=== PATIENT | male | born 1990 | race Caucasian/White ===

== ENCOUNTER 2020-07-31 15:37 | Emergency (ER) | payer OTHER, SELFPAY ==
[2020-07-31 15:40] VITALS: BP 134/90; PULSE 93; RESP 20; TEMP 36.2; O2SAT 99
--- NOTE | 2020-07-31 18:40 | PC.NURSE ---
not in WR at 1733 or 1800
== END 2020-07-31 17:33 | disposition left against medical advice (07) ==
LOC: ANHED 18:50
DX: R68.83 Chills (without fever) (principal)
CPT/HCPCS: 99199

== ENCOUNTER 2022-07-05 10:56 | Emergency (ER) | payer OTHER, SELFPAY ==
[2022-07-05 10:56] VITALS: BP 115/98; PULSE 86; RESP 16; TEMP 35.9; O2SAT 97
--- NOTE | 2022-07-05 10:59 | ED.WOUNDLAC ---
HPI - Wound/Laceration General Chief Complaint: Wound/Laceration Stated Complaint: right had laceration Time Seen by Provider: 07/05/22 10:59 Source: patient and RN notes reviewed Mode of arrival: ambulatory Limitations: no limitations History of Present Illness HPI narrative: patient states that he struck a porcelain counter in anger at home. It then broke and cut his right palm. Palpation makes it painful. Rest makes it better. Onset (ago): minute(s) (10) Extremity Location: Right: hand Place: home Patient tetanus UTD: Yes ( In the last 5 years) Context: accidental Associated symptoms: none Treatments prior to arrival: bandage Related Data Home Medications Medication Instructions Recorded Confirmed No Home Medications 07/05/22 07/05/22 Allergies Allergy/AdvReac Type Severity Reaction Status Date / Time No Known Allergies Allergy Verified 07/05/22 11:04 Review of Systems Review of Systems: All systems reviewed & are unremarkable except as noted in HPI and below PMFSH Past Medical History Medical History (Updated 07/05/22 @ 11:15 by Zana Chung MD) No active medical problems Surgical History Surgical History (Updated 07/05/22 @ 11:04 by Zana Chung MD) No pertinent past surgical history Exam Const: General: healthy appearing, no acute distress and alert Nutritional Appearance: well nourished Orientation/consciousness: patient oriented x3 Limitations: no limitations HENMT: Head: normal to inspection Ears: external ears normal Face/Nose/Sinus: Normal external nose present Face and sinus: normal facial exam Mouth: Yes moist mucous membranes Eyes: Conjunctivae: conjunctivae normal Pupils: Equal, round and reactive pupils present EOM: EOMs intact bilaterally Neck: Neck: normal visual inspection Resp: Effort & Inspection: normal respiratory effort Auscultation: clear to auscultation bilaterally Cardio: Rate: regular rate Rhythm: regular rhythm GI: GI Palp: Yes Soft to palpation and No Tenderness to palpation present (GI) Auscultation: normal bowel sounds Back/Spine/Pelvis: Cervical Spine: cervical ROM normal Thoracic/Lumbar Spine: thoraco-lumbar ROM normal Skin: General skin exam: normal color Rashes: no rashes Wounds: wounds noted laceration right palmar hand size (5 cm) Neuro: General: patient oriented x3, moves all extremities, no focal motor deficits and CN's II-XI intact bilaterally Speech: normal speech Gait exam (Neuro): Normal gait present Extrem: General: normal to inspection and no clubbing, cyanosis or edema Psych: Mental Status: mental status grossly normal Affect: normal affect Attitude: cooperative Course Vital Signs Vital signs: Vital Signs Temperature 35.9 C L 07/05/22 10:56 Pulse Rate 86 07/05/22 10:56 Respiratory Rate 16 07/05/22 10:56 Blood Pressure 115/98 H 07/05/22 10:56 Pulse Oximetry 97 07/05/22 10:56 Oxygen Delivery Room Air 07/05/22 10:56 Temperature 35.9 C L 07/05/22 10:56 Pulse Rate 86 07/05/22 10:56 Respiratory Rate 16 07/05/22 10:56 Blood Pressure 115/98 H 07/05/22 10:56 Pulse Oximetry 97 07/05/22 10:56 Oxygen Delivery Room Air 07/05/22 10:56 Procedures Laceration Laceration 1: Date: 07/05/22 Site: hand Side (If applicable): right Size (cm): 5 Description: linear Depth: simple, single layer Local Anesthetic: lidocaine 1% and with epi Amount of anesthesia used (mL): 10 Pre-repair: wound explored and irrigated ====== Skin Level ====== Skin layer closed with: nylon Size (cm): 4-0 Number of sutures: 12 Technique: running ====== Subcutaneous Layer ====== ====== Muscle Layer ====== ====== Tendon Layer ====== Dressing: Nonstick Telfa and Jill Discharge Plan Discharge Clinical Impression: Laceration Patient Disposition: Home, Self-Care Condition: Improved
== END 2022-07-05 11:40 | disposition home or self-care (01) ==
LOC: CHSED 11:34
PROVIDERS: Emergency Provider Emergency Medicine; PCP Family Medicine
DX: S61.411A Laceration without foreign body of right hand, initial encounter (principal); W26.8XXA Contact with other sharp object(s), not elsewhere classified, initial encounter
CPT/HCPCS: 12002; 99282

== ENCOUNTER 2022-07-14 03:22 | Emergency (ER) | payer OTHER, SELFPAY ==
[2022-07-14 03:28] VITALS: BP 170/80; PULSE 90; RESP 20; TEMP 36.8; O2SAT 99
--- NOTE | 2022-07-14 03:36 | ED.GENADULT ---
HPI - General Adult General Chief complaint: Extremity Problem,Nontraumatic Stated complaint: possible infection Time Seen by Provider: 07/14/22 03:30 History of Present Illness HPI narrative: the patient is a 31-year-old male who sustained a right hand laceration on 07/05/2022 and underwent repair with 12 running sutures at this institution. He was discharged without antibiotics. He now presents to the emergency room with onset of cellulitis and erythema with tenderness of the right hand since 9:00 p.m. 07/13/2022. Prior to that, there is no erythema. The sutures are still in place. He has an appointment with his primary care provider in 2 days time, 07/16/2022. No fevers. No drainage from the wound. No motor or sensory deficits in the right hand. No other complaints. Related Data Allergies Allergy/AdvReac Type Severity Reaction Status Date / Time No Known Allergies Allergy Verified 07/05/22 11:04 Review of Systems Review of Systems: All systems reviewed & are unremarkable except as noted in HPI and below Constitutional: Constitutional: Reports as per HPI, Reports no additional constitutional complaints, Denies chills, Denies excessive sweating, Denies fatigue, Denies fever(s), Denies headache(s) and Denies weakness Eyes: Eyes: Reports as per HPI, Reports no additional eye complaints, Denies change in vision and Denies photophobia ENT: Reports system reviewed and no additional complaints, except as documented, Reports as per HPI, Denies dysphagia, Denies vertigo, Denies dizziness, Denies headache(s), Denies lip swelling, Denies nasal congestion, Denies sore throat, Denies throat swelling and Denies tongue swelling Cardiovascular: Cardiovascular: Reports as per HPI, Reports no additional cardiovascular complaints, Denies chest pain, Denies syncope, Denies rapid heart rate and Denies dyspnea Respiratory: Respiratory: Reports as per HPI, Reports no additional respiratory complaints, Denies chest congestion, Denies cough, Denies dyspnea and Denies wheezing Gastrointestinal: Gastrointestinal: Reports as per HPI, Reports no additional gastrointestinal complaints, Denies abdominal pain, Denies constipation, Denies dysphagia, Denies diarrhea, Denies nausea and Denies vomiting Genitourinary: Genitourinary: Reports as per HPI, Denies hematuria, Denies oliguria, Denies dysuria, Denies urinary frequency, Denies urinary incontinence and Denies urinary urgency Musculoskeletal: Musculoskeletal: Reports no additional musculoskeletal complaints, Denies back pain, Denies myalgias, Denies arthralgias, Denies joint swelling and Denies numbness Integumentary/Breasts: Skin/Breast: Reports system reviewed and no additional complaints, except as docu, Denies pruritus, Reports erythema ( Right hand laceration repair site), Denies rash and Denies skin ulcer Neurologic: Reports system reviewed and no additional complaints, except as documented, Reports as per HPI, Denies confusion, Denies vertigo, Denies dizziness, Denies syncope, Denies headache(s), Denies focal weakness, Denies numbness and Denies weakness Psychiatric: Psychiatric: Reports as per HPI, Denies anxiety, Denies confusion, Denies depression, Denies homicidal ideation and Denies suicidal ideation Endocrine: Endocrine: Reports no additional endocrine complaints, Denies excessive sweating, Denies fatigue, Denies polydipsia and Denies polyuria Hematologic/Lymphatic: Hematologic/Lymphatic: Reports no additional hematologic/lymphatic complaints, Denies easy bleeding and Denies easy bruising Allergic/Immunologic: Allergic/Immunologic: Reports no additional allergic/immunologic complaints, Denies lip swelling, Denies throat swelling, Denies tongue swelling and Denies wheezing PMFSH Past Medical History Medical History No active medical problems Surgical History Surgical History No pertinent past
[2022-07-14] MEDS: ceFAZolin SODIUM 1 GM VIAL IM ×2 (03:53)
[2022-07-14] MEDS: NEOMYCIN/POLYMYXIN/BACITRACIN OINTMENT 15 GM TUBE 1 APPLIC TOPICAL (03:55)
--- NOTE | 2022-07-14 03:56 | PC.NURSE ---
Wrapped hand with triple antibiotic ointment per Dr. Garcia instructions
[2022-07-14 03:57] VITALS: BP 140/90; PULSE 90; RESP 20; TEMP 36.6; O2SAT 98
== END 2022-07-14 04:07 | disposition home or self-care (01) ==
PROVIDERS: Emergency Provider Emergency Medicine; PCP Family Medicine
DX: L03.113 Cellulitis of right upper limb (principal)
CPT/HCPCS: 96372; 99283; J0690

== ENCOUNTER 2024-01-08 17:23 | Emergency (ER) | payer OTHER, SELFPAY ==
[2024-01-08 17:30] VITALS: BP 122/83; PULSE 95; TEMP 35.7; O2SAT 97
[2024-01-08 18:15] LABS: Strep Group A RT-PCR NOT DETECTED (Negative)
[2024-01-08 18:25] LABS: SARS-CoV-2 RNA PCR Negative (Negative)
--- NOTE | 2024-01-08 18:25 | ED.GENADULT ---
HPI - General Adult General Chief complaint: Upper Respiratory Infection Stated complaint: sore throat Source: patient Mode of arrival: ambulatory Limitations: no limitations History of Present Illness HPI narrative: 33-year-old white male complains of a cough productive of whitish sputum since last night around midnight without any nausea vomiting problems eating or drinking rash or itching bleeding or bruising chest pain shortness of breath dizziness or lightheadedness swelling lumps or bumps or any other complaints. Works has a door-deliver person of food. No history of heart lung disease. Denies any Other complaints. Related Data Allergies Allergy/AdvReac Type Severity Reaction Status Date / Time No Known Allergies Allergy Verified 07/05/22 11:04 Review of Systems Review of Systems: All systems reviewed & are unremarkable except as noted in HPI and below PMFSH Past Medical History Medical History No active medical problems Surgical History Surgical History No pertinent past surgical history Exam Narrative: White male patient with no apparent distress.? Head normocephalic, atraumatic.? Eyes conjunctiva pink sclera nonicteric.? Extraocular movements are intact.? Ears externally normal.? Oropharynx is clear with moist mucous membranes without exudates.? Neck is supple nontender no lymphadenopathy.? Back is nontender.? Lungs are clear.? Heart is regular rate and rhythm without murmurs gallops or rubs.? Chest wall nontender. Abdomen is soft and nontender no hepatosplenomegaly or masses no CVA tenderness no abdominal bruits.? Extremities no cyanosis clubbing or edema.? Skin is warm and dry without rashes or lesions.? Neurological patient is alert and oriented x4.? Motor and sensory grossly intact.? Gait is normal Course Vital Signs Vital signs: Vital Signs Oxygen Delivery Room Air 01/08/24 17:25 Temperature 36.6 C 01/08/24 18:46 Pulse Rate 78 01/08/24 18:46 Blood Pressure 116/77 01/08/24 18:46 Pulse Oximetry 92 01/08/24 18:46 Oxygen Delivery Room Air 01/08/24 18:46 Medical Decision Making [facility] Narrative Medical decision making narrative: ? Patient placed in room: Three with his mother ? History and physical was performed. flu COVID RSV all negative Independent Historian: mother External Source Review: Differential Dx includes but not limited to: COVID flu RSV strep bronchitis mode Medications were Reviewed: Medications given: home meds reviewed he is not taking anything Independently Interpreted by me: Shared decision Making: evaluation was discussed all questions were asked and answered patient agreed with plan. Social Situation Impacting Patients Care: Discussed with Dr. SWAIN DIAGNOSIS: acute bronchitis DISPOSITION: Discharged home CONDITION AT DISCHARGE: stable Vital Signs Vital Signs: Vital Signs Oxygen Delivery Room Air 01/08/24 17:25 Temperature 36.6 C 01/08/24 18:46 Pulse Rate 78 01/08/24 18:46 Blood Pressure 116/77 01/08/24 18:46 Pulse Oximetry 92 01/08/24 18:46 Oxygen Delivery Room Air 01/08/24 18:46 Lab Data Labs: Lab Results 01/08/24 01/08/24 Range/Units 17:33 17:34 Influenza A (RT-PCR) Negative (Negative) Influenza B (RT-PCR) Negative (Negative) RSV (RT-PCR) Negative (Negative) SARS-CoV-2 RNA (RT-PCR) Negative (Negative) Group A Strep (PCR) Not detected (Negative) Discharge Plan Discharge Clinical Impression: Acute bronchitis Qualifiers: Bronchitis organism: unspecified organism Qualified Code(s): J20.9 - Acute bronchitis, unspecified Patient Disposition: Home, Self-Care Condition: Stable Instructions: Acute Bronchitis (ED) Additional Instructions: Robitussin DM for cough [id number] as needed. Tylenol
[2024-01-08 18:46] VITALS: BP 116/77; PULSE 78; TEMP 36.6; O2SAT 92
--- NOTE | 2024-01-08 18:58 | PC.NURSE ---
assumed care. report received from sanjuanita zarate.
[2024-01-08 19:00] LABS: Influenza A QL RT-PCR Negative (Negative); Influenza B QL RT-PCR Negative (Negative); RSV RNA, RT-PCR Negative (Negative)
--- NOTE | 2024-01-08 19:02 | PC.NURSE ---
REPORT TO CARIDAD JOLLY
[2024-01-08 20:05] VITALS: BP 125/70; PULSE 85; RESP 16; O2SAT 96
== END 2024-01-08 20:05 | disposition home or self-care (01) ==
PROVIDERS: Emergency Provider Emergency Medicine; PCP Family Medicine
DX: J20.9 Acute bronchitis, unspecified (principal); Z20.822 Contact with and (suspected) exposure to COVID-19
CPT/HCPCS: 87637; 87651; 99283

== ENCOUNTER 2024-02-28 08:43 | Outpatient (CLI) | payer OTHER, SELFPAY ==
--- NOTE | ~2024-02-28 | US_ITS ---
RIGHT UPPER QUADRANT ABDOMINAL ULTRASOUND (Doppler ultrasound interrogation techniques used as needed for this exam.) Ordering provider: Babatunde Curtis, History: . Elevated alkaline phosphatase level . Comparison: None. FINDINGS: PANCREAS: Partially seen. PORTAL VEIN: Hepatopedal flow demonstrated. LIVER: Normal size and increased echotexture suggestive of fat infiltration. No focal hepatic lesions or perihepatic fluid collections are identified. BILIARY DUCTS: No intra or extrahepatic biliary dilation. Common bile duct measures 5 mm in diameter which is normal for patient's age. GALLBLADDER: Polyps is noted. No stones, sludge, gallbladder wall thickening or pericholecystic fluid . Negative sonographic Mixon's sign. FREE FLUID: None visualized within the upper abdomen. IMPRESSION: Polyp in the gallbladder. Fat infiltration of the liver. Otherwise, normal right upper quadrant ultra sound. Reviewed, dictated and finalized at location A. MOGRAPH OPERATOR IMPRESSION: Polyp in the gallbladder. Fat infiltration of the liver. Otherwise, normal righ t upper quadrant ultrasound.
== END 2024-02-28 08:44 | disposition home or self-care (01) ==
LOC: CHSIMG 08:45
PROVIDERS: PCP Family Medicine; Visit Provider Family Medicine
DX: R74.8 Abnormal levels of other serum enzymes (principal); K82.4 Cholesterolosis of gallbladder; K76.0 Fatty (change of) liver, not elsewhere classified
CPT/HCPCS: 76705

== ENCOUNTER 2024-08-14 12:40 | Outpatient (CLI) | payer OTHER, SELFPAY ==
[2024-08-14 13:05] LABS: Hematocrit 41.4 % (40.0-54.0); Hemoglobin 14.1 g/dL (14.0-18.0); Mean Corpuscular HGB Conc 34.1 g/dL (32-36); Mean Corpuscular Hemoglobin 28.6 pg (27.0-31.0); Mean Platelet Volume 9.3 fl (8.7-11.0); Platelet Count Result 262 K/mm3 (150-420); Red Blood Count 4.93 M/mm3 (4.70-6.10); Red Cell Distribution Width 13.6 % (11.6-14.4); White Blood Count 6.9 K/mm3 (4.8-10.8)
[2024-08-14 13:34] LABS: Add Urine Microscopic? NO; Appearance Urine Clear (Clear); Bilirubin Urine Negative (Negative); Blood Urine Negative (Negative); Color Urine Yellow (Yellow); Glucose Urine UA Trace (Negative); Ketones Urine Negative (Negative); Leukocyte Esterase Ur Negative (Negative); Nitrate Urine Negative (Negative); Protein Urine Negative (Negative); Specific Grav Ur >= 1.030 (1.010-1.020); Urobilinogen Urine 0.2 mg/dL (0.2-1.0); pH Urine 5.5 (5.0-8.0)
[2024-08-14 13:37] LABS: Albumin Level 4.2 g/dL (3.4-5.0); Anion Gap 8 mmol/L (4-12); Blood Urea Nitrogen 15 mg/dL (7-18); Calcium 8.9 mg/dL (8.5-10.1); Carbon Dioxide 24 mmol/L (21-32); Chloride 105 mmol/L (98-108); Creatine Kinase 343 U/L (39-308); Estimated Glomerular Filt Rate 50; Glucose 97 mg/dL (70-99); Osmolality Calculated 284 mOsm/kg (285-295); Phosphorus 2.5 mg/dL (2.6-4.7); Potassium 3.7 mmol/L (3.5-5.1); Sodium 137 mmol/L (136-145)
--- OUTSIDE RECORDS SUMMARY | 2024-08-14 13:37 | XMS_ITS | Clinical Summary ---
Author Organization [facility] Address [address] [place] [id number] Care Team Providers Care Pullboat Engineer Name Role Phone Babatunde Curtis MD Primary Care Provider [phone] Social History Tobacco Use Types Packs/Day Years Used Date Smoking Tobacco: Never Assessed Sex and Gender Information Value Date Recorded Sex Assigned at Not on file Legal Sex Male 6:14 PM CDT Gender Identity Not on file Sexual Orientation Not on file Plan of Treatment Health Maintenance Due Date Last Done Comments Annual Physical 1992 Hepatitis C 09/21/2007 COVID-19 Vaccine ( season) 2023 04/27/2021, 08/26/2020, 07/29/2020 DTaP, Tdap and Td Vaccines (7 - Td or Tdap) 04/18/2027 04/18/2017, 10/16/2004, 04/18/2004, Additional history exists Hepatitis B Vaccines Completed 08/21/1999, 03/20/1999, 02/20/1999 Meningococcal Vaccine Aged Out 10/16/2004 No raymond [place] eligible based on patient's age to complete this topic HPV Vaccines Aged Out No longer eligi ble based on patient's age to complete this topic Meningococcal B Vaccine Aged Out No l onger eligible based on patient's age to complete this topic Pneumococcal Vaccine: Pediatrics (0 to 5 Years) and At-Risk Patients (6 to 49 Years) Aged Out No longer eligible based on patient's age to complete this topic RSV Immunizations Under 20 Months Aged Out No longer eligible based on patient's age [id number] [employer] Care Teams Pullboat Engineer Relationship Specialty Start Date End Date Babatunde Curtis MD [address] [place] [id number] PCP - General FAMILY PRACTICE 10/05/23
[2024-08-14 13:51] LABS: Creatinine Urine 245.47 mg/dL (40-278); Total Protein Urine Random 23.2 mg/dL (0.0-11.9); Ur Ttl Prot Creatinine Ratio 0.09 mg/mg (0-0.20)
[2024-08-14 14:14] LABS: Erythrocyte Sedimentation Rate 5 mm/hr (0-15)
[2024-08-15 13:59] LABS: Parathyroid Intact 46 pg/mL (16-77)
[2024-08-15 16:38] LABS: Complement Total CH50 53 U/mL (31-60)
[2024-08-16 04:33] LABS: Complement C3 176 mg/dL (82-185)
[2024-08-16 11:48] LABS: Kappa\\Lambda Light Chains 1.04 (0.26-1.65); Lambda Light Chain 17.3 mg/L (5.7-26.3)
== END 2024-08-14 12:41 | disposition home or self-care (01) ==
PROVIDERS: PCP Registered Nurse; Visit Provider Internal Medicine Nephrology
DX: R94.4 Abnormal results of kidney function studies (principal)
CPT/HCPCS: 36415; 80069; 81003; 82550; 82570; 83883; 83970; 84156; 85027; 85652; 86038; 86039; 86160; 86162; 86334

== ENCOUNTER 2024-08-20 11:10 | Outpatient (CLI) | payer OTHER, SELFPAY ==
[2024-08-20 12:49] LABS: Total Volume 24 Hour Urine 3500 ml
[2024-08-20 12:50] LABS: Urea Nitrogen 24 Hour Urine 12.8 g/Day (7-20)
[2024-08-23 03:09] LABS: Creat 24 Hr 2.56 g/24 h (0.50-2.15); Pro/Creat Ratio 55 mg/g creat (<100); Pro/Creat Ratio mg/mg 0.055 (<0.100); Protein,total, 24 Hr Ur 140 mg/24 h (<150)
[2024-08-24 12:34] LABS: Albumin 0 %
== END 2024-08-20 11:11 | disposition home or self-care (01) ==
PROVIDERS: PCP Family Medicine; Visit Provider Internal Medicine Nephrology
DX: R94.4 Abnormal results of kidney function studies (principal)
CPT/HCPCS: 81050; 84540; 86335